=== PATIENT | male | born 1975 | race Caucasian/White ===

== ENCOUNTER → 2018-07-12 09:32 | Outpatient (CLI) | payer BC, SELFPAY ==
[2018-07-12 13:01] LABS: ALB/GLOB Ratio 1.2 RATIO (0.9-2.4); AST(SGOT) 44 U/L (15-37); Alanine Aminotransfer ALT/SGPT 112 U/L (16-61); Albumin, Serum 3.7 g/dL (3.2-5.0); Alkaline Phosphatase 96 U/L (45-117); Anion Gap 7 (5-15); BUN 17 mg/dL (7-18); Calcium,Total 8.6 mg/dL (8.5-10.1); Chloride 107 mmol/L (98-107); Creatinine, Serum 1.06 mg/dL (0.70-1.30); EST Glomerular Filtration Rate 81 mL/min (>60); Est Glom Filt Rate - Afr Amer 97 mL/min (>60); Glucose 105 mg/dL (74-106); Potassium 4.1 mmol/L (3.5-5.1); Protein, Total 6.7 g/dL (6.4-8.2); Sodium Level 142 mmol/L (136-145)
== END ==
PROVIDERS: Family Provider Family Medicine; PCP Family Medicine; Visit Provider Family Medicine
DX: I10 Essential (primary) hypertension (principal)
CPT/HCPCS: 36415; 80053

== ENCOUNTER 2018-11-13 12:06 | Emergency (ER) | payer BC, SELFPAY ==
[2018-11-13 12:07] VITALS: BP 179/100; PULSE 106; RESP 16; TEMP 36.9; O2SAT 99; BMI 31.6
--- NOTE | 2018-11-13 12:20 | RAD_ITS ---
STUDY: X-RAY CHEST REASON FOR EXAM: Male, 43 years old. Chest pain TECHNIQUE: Single AP portable view of the chest. COMPARISON: None. FINDINGS: The lungs are clear and expanded. There is no demonstrated pleural abnormality. Normal size heart. Normal mediastinum and lisa. Normal visualized pulmonary arteries. Normal visualized aortic arch and descending thoracic aorta. Normal visualized thoracic spine. Normal visualized ribs, clavicles, and shoulders. There is no demonstrated abnormality of the visualized soft tissue structures of the upper abdomen. RAD/Chest 1 View (Portable) IMPRESSION: Normal x-ray examination of the chest. Electronically Signed: Jorge Luis Hernandez MD at 13:43 EST , Service support ,
--- NOTE | 2018-11-13 12:20 | EKG12_ITS ---
Test Reason : PALPS Blood Pressure : / mmHG Vent. Rate : 105 BPM Atrial Rate : 105 BPM P-R Int : 182 ms QRS Dur : 082 ms QT Int : 322 ms P-R-T Axes : 034 000 -05 degrees QTc Int : 425 ms Sinus tachycardia Inferior infarct , age undetermined Abnormal ECG Confirmed by HAN GONZÁLES, ISAAC ([id number]), managing editor TAWANA WATERS ([id number] on 11/26/2018 2:46:34 PM Referred By: JONATHAN/HOMER Confirmed By:ISAAC SHORT MD
[2018-11-13 12:53] LABS: Absolute Lymphocyte Count 1.72 X10^3/ul (0.83-4.51); Absolute Neutrophil Count 4.3 X10^3/uL (2.0-7.7); Basophil# 0.03 X10^3/uL; Basophil% 0.4 % (0-1); Eosinophil# 0.11 X10^3/uL; Eosinophils% 1.6 % (0-5); Hematocrit 50.8 % (40-54); Hemoglobin 17.7 g/dl (13.0-16.5); Lymphocyte # 1.72 X10^3/ul (4.0); Mean Corp Hgb Conc 34.8 g/gl (32-36); Mean Corpuscular Hgb 31.8 pg (27.0-32.0); Mean Corpuscular Volume 91.4 fL (80-94); Monocyte# 0.67 X10^3/uL; Monocyte% 9.7 % (0-10); Neutrophil # 4.34 X10^3/uL (2.7-7.7); POSITIVE COUNT NO; POSITIVE DIFFERENTIAL NO; POSITIVE MORPHOLOGY NO; Platelet Count 214 K/mm3 (150-450); RBC Distribution Width CV 13.1 % (11.6-14.6); RBC Distribution Width SD 43.1 fl (35.1-43.9); Red Blood Count 5.56 M/mm3 (4.6-6.2); White Blood Count 6.9 K/mm3 (4.4-11.0)
--- NOTE | 2018-11-13 13:04 | ED.DCSUM_ITS ---
- ER Visit Summary Date of Service: 11/13/18 Chief Complaint: [] Hollow sensation in chest burping a lot for 3 weeks History of Present Illness: The patient is a 43 M [] he of hypertension and no other past history, no history of VA DVT PE CAD CHF or any GI issues, he indicates for 3 weeks has had an intermittent sense that in the midsternal area there is a hollow sensation that develops there that caused him to burp a lot, this is not associate with food or drink, not associate activity, he has had no fever no cough no numbness weakness or paresthesias no shortness of breath when he gets the sensation in his mid chest he feels that he has to burp quite a bit and it goes away he has no history of acid reflux or GI Is having no symptoms now and wanted to be evaluate because it has been going on for about 3 weeks intermittently Physical Examination: [] 140/80 afebrile pulse ox 99% General, no distress resting comfortably HEENT is generally unremarkable The neck is supple no adenopathy Cardiovascular, regular rate and rhythm Lungs, clear bilateral Abdomen, soft nontender Extremities, no clubbing cyanosis or edema Neurologic, awake alert answering questions appropriately moving all 4 extremities Patient assures me none of the symptoms are related to exertion he has no history of CAD or other life-threatening conditions her risk factors, his hypertension is well controlled, his bowel bladder habits been normal, his EKG shows nothing acute Test Results: [] Emergency Department Course and Treatment: [] Any labs and chest x-ray are all generally unremarkable see those reports, explained the above to him I explained that the exact etiology of the above is unclear we discussed inpatient versus outpatient management and have explained to him he needs further testing he does not wish to be admitted he prefers outpatient management at this time I recommend he stay on a bland diet continue to consider using proton pump inhibitor medications and follow-up with his doctors for further management he agrees Treatment Plan: [] Disposition: [] Home stable Impression: [] Nonspecific sensation in chest, persistent burping etiology uncl ear This note was generated with [employer] dictation software. It may contain incorrect words, spelling, and punctuation that were not noted in review of the chart prior to signing ED Disposition - Plan for ED Patient: Chief Complaint: Palpitations Referrals: Ajith Schneider MD [Primary Care Provider] -
--- NOTE | 2018-11-13 13:04 | ED.DEP ---
ED Disposition - Plan for ED Patient: Chief Complaint: Palpitations Instructions: ED Palpitations, ED Chest Pain Atypical Unkn Cause Referrals: Ajith Schneider MD [Primary Care Provider] -
[2018-11-13 13:06] VITALS: BP 151/105; PULSE 87; RESP 19; O2SAT 97
[2018-11-13 13:13] LABS: Anion Gap 7 (5-15); BUN 10 mg/dL (7-18); BUN/Creat Ratio 10.4 RATIO (10-20); Calcium,Total 8.9 mg/dL (8.5-10.1); Chloride 108 mmol/L (98-107); Creatinine, Serum 0.96 mg/dL (0.70-1.30); EST Glomerular Filtration Rate 90 mL/min (>60); Est Glom Filt Rate - Afr Amer 109 mL/min (>60); Estimated Creatinine Clearance 91.81 ml/min; Glucose 101 mg/dL (74-106); Potassium 3.3 mmol/L (3.5-5.1); Sodium Level 143 mmol/L (136-145)
[2018-11-13 14:00] VITALS: BP 151/95; PULSE 91; RESP 19; O2SAT 97
[2018-11-13 14:29] VITALS: BP 151/95; PULSE 79; RESP 17; O2SAT 98
== END 2018-11-13 14:41 | disposition home or self-care (01) ==
LOC: ED 12:56
PROVIDERS: Emergency Provider Emergency Medicine; Family Provider Family Medicine; PCP Family Medicine
DX: R09.89 Other specified symptoms and signs involving the circulatory and respiratory systems (principal); R14.2 Eructation; I10 Essential (primary) hypertension; Z79.899 Other long term (current) drug therapy
CPT/HCPCS: 71045; 80048; 84484; 85025; 93005; 99284; A4216

== ENCOUNTER → 2018-11-24 14:25 | Outpatient (CLI) | payer BC, SELFPAY ==
[2018-11-13 12:07] VITALS: BMI 31.6
[2018-11-24 14:36] LABS: Basophil# 0.05 X10^3/uL; Basophil% 0.7 % (0-1); Eosinophil# 0.15 X10^3/uL; Eosinophils% 2.2 % (0-5); Hematocrit 49.4 % (40-54); Hemoglobin 17.5 g/dl (13.0-16.5); Lymphocyte % 30.4 % (19-41); Mean Corp Hgb Conc 35.4 g/gl (32-36); Mean Corpuscular Hgb 31.8 pg (27.0-32.0); Mean Corpuscular Volume 89.8 fL (80-94); Mean Platelet Vol. 10.8 fl (6.2-12.0); Monocyte# 0.56 X10^3/uL; Monocyte% 8.1 % (0-10); Neutrophil # 4.03 X10^3/uL (2.7-7.7); Neutrophil % 58.5 % (47-70); Platelet Count 218 K/mm3 (150-450); RBC Distribution Width CV 13.3 % (11.6-14.6); RBC Distribution Width SD 43.7 fl (35.1-43.9); White Blood Count 6.9 K/mm3 (4.4-11.0)
[2018-11-24 14:38] LABS: POSITIVE COUNT NO; POSITIVE DIFFERENTIAL NO; POSITIVE MORPHOLOGY NO
[2018-11-24 14:59] LABS: Anion Gap 10 (5-15); BUN 15 mg/dL (7-18); BUN/Creat Ratio 16.6 RATIO (10-20); Calcium,Total 8.5 mg/dL (8.5-10.1); Chloride 108 mmol/L (98-107); Cholesterol 167 mg/dL (200); EST Glomerular Filtration Rate 97 mL/min (>60); Est Glom Filt Rate - Afr Amer 117 mL/min (>60); Glucose 78 mg/dL (74-106); High Density Lipoprotein 48 mg/dL; Potassium 3.8 mmol/L (3.5-5.1); Sodium Level 145 mmol/L (136-145); Triglycerides 80 mg/dL; Very Low Density Lipoprotein 16 mg/dL (5-40)
--- OUTSIDE RECORDS SUMMARY | 2019-01-26 14:52 | XMS RPT_ITS ---
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 / Community D58.2(ICD-10) Hospital Repository PROCEDURES PROCEDURES No Procedure Records FoundRESULTS RESULTS 12 LEAD ELECTROCARDIOGRAM Observed: 11/29/2018 Status: F Source: URIEL 5:45 PM FOR[facility]LY [facility] H[facility]PITAL REPOSITORY [facility] Cardiovascular Services [address] [place] [address] 12 Lead EKG 11/13/18 1208 MR#: [id number] Acct: [id number] Name: TREVOR BOYER Rep #: [id number] : 1975 43 From: Ajith Short MD Attending Dr: Status: DEP ER Ordering Dr: Mei Valverde MD Date: 11/13/18 Location: ED Sex: M C Admitted: Test Reason : PALPS Blood Pressure : / mmHG Vent. Rate : 105 BPM Atrial Rate : 105 BPM P-R Int : 182 ms QRS Dur : 082 ms QT Int : 322 ms P-R-T Axes : 034 000 -05 degrees QTc Int : 425 ms Sinus tachycardia Inferior infarct , age undetermined Abnormal ECG Confirmed by HAN GONZÁLES, AJITH ([id number]), news copy editor TAWANA WATERS ([id number]) on 11/26/2018 2:46:34 PM Referred By: SHAUNA Confirmed By:AJITH SHORT MD 11/26/18 1446 Date Ajith Short MD CC: MD Conor Valverde; Ajith Schneider MD Signed CBC W/DIFF, AUTOMATED Collected: 11/24/2018 Status: F Source: URIEL 12:30 PM [facility] REPOSITORY TYPE CODE TESTS RESULT OUT OF RANGE REFERENCE UNITS LAB L100.1000 4.4-11.0 K/mm3 Normal WBC 6.9 LAB L100.1200 4.6-6.2 M/mm3 Normal RBC 5.50 LAB L100.1300 13.0-16.5 g/dl High HGB 17.5 LAB L100.1400 40-54 % Normal HCT 49.4 LAB L100.1500 80-94 fL Normal MCV 89.8 LAB L100.1600 27.0-32.0 pg Normal MCH 31.8 LAB L100.1700 32-36 g/gl Normal MCHC 35.4 LAB L100.1810 11.6-14.6 % Normal RDW CV 13.3 LAB L100.1820 35.1-43.9 fl Normal RDW SD 43.7 LAB L100.1900 150-450 K/mm3 Normal PLT 218 LAB L100.2000 6.2-12.0 fl Normal MPV 10.8 LAB L100.2100 47-70 % Normal NEUT% 58.5 LAB L100.2200 19-41 % Normal LY% 30.4 LAB L100.2300 0-10 % Normal MONO% 8.1 LAB L100.2400 0-5 % Normal EO% 2.2 LAB L100.2500 0-1 % Normal BASO% 0.7 LAB L100.2550 0.0-0.9 % Normal IM GRAN % 0.100 Result Comment: IG% - Immature Granulocytes (promyelocytes, myelocytes and metamyelocytes) > 1% indicates that a LEFT SHIFT is Present. LAB L100.2620 2.0-7.7 X10 3/uL Normal Absolute Neut 4.0 LAB L100.2720 0.83-4.51 X10 3/ul Normal Absolute Lymph 2.10 Performed By: #### L100.0100 #### [facility] [address] [place], [place], [address] BASIC METABOLIC Collected: 11/24/2018 Status: F Source: FOLSOM PROFILE (BMP) 12:30 PM [facility] REPOSITORY TYPE CODE TESTS RESULT OUT OF RANGE REFERENCE UNITS LAB L501.0100 74-106 mg/dL Normal GLU 78 Result Comment: Please note revised GLUCOSE reference range effective 2017. LAB L501.1000 7-18 mg/dL Normal BUN 15 LAB L501.1100 0.70-1.30 mg/dL Normal CREAT,SERUM 0.90 Result Comment: The validity of the calculated GFR AND GFRAA in patients over 70 years has not been determined. Clinical correlation is essential. LAB L501.1110 >60 mL/min Normal EST GFR 97 Result Comment: Non- GFR Calc LAB L501.1115 >60 mL/min Normal EST GFR - AA 117 Result Comment: GFR Calc LAB L501.1300 10-20 RATIO Normal BUN/CRE 16.6 LAB L501.2200 8.5-10.1 mg/dL CA Normal 8.5 LAB L501.5300 136-145 mmol/L NA Normal 145 LAB L501.5600 3.5-5.1 mmol/L K Normal 3.8 LAB L501.5900 98-107 mmol/L High CL 108 LAB L501.6100 21.0-32.0 mmol/L Normal CO2 27.0 LAB L501.6200 5-15 Normal GAP 10 Performed By: #### L500.2500, L500.4100 #### [facility] [address] [place], [address] LIPID PROFILE Collected: 11/24/2018 Status: F Source: FOLSOM 12:30 PM [facility] REPOSITORY TYPE CODE TESTS RESULT OUT OF RANGE REFERENCE UNITS LAB L501.4900 200 mg/dL Normal CHOL 167 Result Comment: <200 mg/dL Desirable 200-240 mg/dL Borderline >240 mg/dL High Risk LAB L501.5000 mg/dL Normal TRIG 80 Result Comment: The drugs N-Acetylcysteine and Metamizole may falsely depress this assay. Serum Triglycerides Reference Interval Normal <150 mg/dL Borderline high 150 - 199 mg/dL High 200 - 499 mg/dL Very High > or = 500 mg/dL LAB L501.6400 mg/dL Normal HDL 48 Result Comment: The drugs N-Acetylcysteine and Metamizole may falsely depress this assay. Reference Range HDL <40 mg/dL Low HDL Cholesterol HDL >or= 60 mg/dL High HDL Cholesterol LAB L501.6500 0-130 mg/dL Normal LDL 103 LAB L501.6600 5-40 mg/dL Normal VLDL 16 Performed By: #### L500.2500, L500.4100 #### [facility] [address] [place], [address] EMERGENCY DEPARTMENT Observed: 11/13/2018 Status: F Source: FOLSOM SUMMARY 3:32 PM [facility] REPOSITORY [facility] Medical Records Department [address] [place] [address] Emergency Department Summary 11/13/18 1301 MR#: [id number] Acct: [id number] Name: TREVOR BOYER Rep #: [id number] : 1975 43 From: Mei Valverde MD PCP: Ajith Schneider MD Status: DEP ER - ER Visit Summary Date of Service: 11/13/18 Chief Complaint: [] Hollow sensation in chest burping a lot for 3 weeks History of Present Illness: The patient is a 43 M [] he of hypertension and no other past history, no history of LA DVT PE CAD CHF or any GI issues, he indicates for 3 weeks has had an intermittent sense that in the midsternal area there is a hollow sensation that develops there that caused him to burp a lot, this is not associate with food or drink, not associate activity, he has had no fever no cough no numbness weakness or paresthesias no shortness of breath when he gets the sensation in his mid chest he feels that he has to burp quite a bit and it goes away he has no history of acid reflux or GI Is having no symptoms now and wanted to be evaluate because it has been going on for about 3 weeks intermittently Physical Examination: [] 140/80 afebrile pulse ox 99% General, no distress resting comfortably HEENT is generally unremarkable The neck is supple no adenopathy Cardiovascular, regular rate and rhythm Lungs, clear bilateral Abdomen, soft nontender Extremities, no clubbing cyanosis or edema Neurologic, awake alert answering questions appropriately moving all 4 extremities Patient assures me none of the symptoms are related to exertion he has no history of CAD or other life-threatening conditions her risk factors, his hypertension is well controlled, his bowel bladder habits been normal, his EKG shows nothing acute Test Results: [] Emergency Department Course and Treatment: [] Any labs and chest x-ray are all generally unremarkable see those reports, explained the above to him I explained that the exact etiology of the above is unclear we discussed inpatient versus outpatient management and have explained to him he needs further testing he does not wish to be admitted he prefers outpatient management at this time I recommend he stay on a bland diet continue to consider using proton pump inhibitor medications and follow-up with his doctors for further management he agrees Treatment Plan: [] Disposition: [] Home stable Impression: [] Nonspecific sensation in chest, persistent burping etiology unclear This note was generated with [employer] dictation software. It may contain incorrect words, spelling, and punctuation that were not noted in review of the chart prior to signing ED Disposition - Plan for ED Patient: Chief Complaint: Palpitations Referrals: Ajith Schneider MD [Primary Care Provider] - What to do if you have Problems For any increased pain, shortness of breath, bleeding, nausea or vomiting, chest pain, or any unexpected problems, contact your Primary Care Provider. Call [facility] ([phone]) or report to the closest Emergency Room. Call 911 if necessary. 11/13/18 8514 <Electronically signed by Mei Valverde MD> Date Mei Valverde MD Cosigner Signature (If Indicated): Date CC: Ajith Schneider MD DISCHARGE INSTRUCTION Observed: 11/13/2018 Status: F Source: URIEL 1:05 PM [facility] HOSPITAL REPOSITORY [facility] Medical Records Department [address] [place] [address] Discharge Instruction 11/13/18 1304 MR#: [id number] Acct: [id number] Name: TREVOR BOYER Rep #: [id number] : 1975 43 From: Mei Valverde MD PCP: Ajith Schneider MD Status: REG ER ED Disposition - Plan for ED Patient: Chief Complaint: Palpitations Instructions: ED Palpitations, ED Chest Pain Atypical Unkn Cause Referrals: Ajith Schneider MD [Primary Care Provider] - What to do if you have Problems For any increased pain, shortness of breath, bleeding, nausea or vomiting, chest pain, or any unexpected problems, contact your Primary Care Provider. Call [facility] ([phone]) or report to the closest Emergency Room. Call 911 if necessary. 11/13/18 1305 <Electronically signed by Mei Valverde MD> Date Mei Valverde MD Cosigner Signature (If Indicated): Date CC: Ajith Schneider MD CBC W/DIFF, AUTOMATED Collected: 11/13/2018 Status: F Source: URIEL 12:30 PM [facility] TYPE CODE TESTS RESULT OUT OF RANGE REFERENCE UNITS LAB L100.1000 4.4-11.0 K/mm3 Normal WBC 6.9 LAB L100.1200 4.6-6.2 M/mm3 Normal RBC 5.56 LAB L100.1300 13.0-16.5 g/dl High HGB 17.7 LAB L100.1400 40-54 % Normal HCT 50.8 LAB L100.1500 80-94 fL Normal MCV 91.4 LAB L100.1600 27.0-32.0 pg Normal MCH 31.8 LAB L100.1700 32-36 g/gl Normal MCHC 34.8 LAB L100.1810 11.6-14.6 % Normal RDW CV 13.1 LAB L100.1820 35.1-43.9 fl Normal RDW SD 43.1 LAB L100.1900 150-450 K/mm3 Normal PLT 214 LAB L100.2000 6.2-12.0 fl Normal MPV 10.0 LAB L100.2100 47-70 % Normal NEUT% 63.0 LAB L100.2200 19-41 % Normal LY% 25.0 LAB L100.2300 0-10 % Normal MONO% 9.7 LAB L100.2400 0-5 % Normal EO% 1.6 LAB L100.2500 0-1 % Normal BASO% 0.4 LAB L100.2550 0.0-0.9 % Normal IM GRAN % 0.300 Result Comment: IG% - Immature Granulocytes (promyelocytes, myelocytes and metamyelocytes) > 1% indicates that a LEFT SHIFT is Present. LAB L100.2620 2.0-7.7 X10 3/uL Normal Absolute Neut 4.3 LAB L100.2720 0.83-4.51 X10 3/ul Normal Absolute Lymph 1.72 Performed By: #### L100.0100 #### [facility] [address] [place], [place], [address] BASIC METABOLIC Collected: 11/13/2018 Status: F Source: URIEL PROFILE (BMP) 12:30 PM [facility] REPOSITORY TYPE CODE TESTS RESULT OUT OF RANGE REFERENCE UNITS LAB L501.0100 74-106 mg/dL Normal GLU 101 Result Comment: Fasting Glucose result from 100 to 125 mg/dL suggests IMPAIRED HOMEOSTASIS per A.D.A. criteria. Please note revised GLUCOSE reference range effective 2017. LAB L501.1000 7-18 mg/dL Normal BUN 10 LAB L501.1100 0.70-1.30 mg/dL Normal CREAT,SERUM 0.96 Result Comment: The validity of the calculated GFR AND GFRAA in patients over 70 years has not been determined. Clinical correlation is essential. LAB L501.1110 >60 mL/min Normal EST GFR 90 Result Comment: Non- GFR Calc LAB L501.1115 >60 mL/min Normal EST GFR - AA 109 Result Comment: GFR Calc LAB L501.1255 ml/min Normal Estimated CRCL 91.81 LAB L501.1300 10-20 RATIO Normal BUN/CRE 10.4 LAB L501.2200 8.5-10 mg/dL Normal .1 CA 8.9 LAB L501.5300 136-14 mmol/L Normal 5 NA 143 LAB L501.5600 3.5-5. mmol/L Low 1 K 3.3 LAB L501.5900 98-107 mmol/L High CL 108 LAB L501.6100 21.0-3 mmol/L Normal 2.0 CO2 28.0 LAB L501.6200 5-15 Normal GAP 7 Performed By: #### L500.2500, L501.4010 #### [facility] [address] [place], [address] TROPONIN-I Collected: 11/13/2018 Status: F Source: FOLSOM 12:30 PM [facility] REPOSITORY TYPE CODE TESTS RESULT OUT OF RANGE REFERENCE UNITS LAB L501.4010 <0.045 ng/mL Normal < 0.015 TROPONIN-I Result Comment: TROPONIN-I EXPECTED VALUES <0.045 Negative 0.045 - 0.590 Consistent with Cardiac Damage > OR = 0.600 Critical Value Not every elevated troponin is indicative of LA. These values should be used with clinical judgement in examining the patient's clinical picture for diagnosis. To establish a diagnosis of LA versus myocardial injury, there must be a demonstrated rise and/or fall in the troponin values, in addition to ischemic symptoms, EKG changes, new regional wall motion abnormality, and/or angiographical evidence. PLEASE NOTE: REFERENCE RANGES EDITED 18 Performed By: #### L500.2500, L501.4010 #### [facility] [address] [place], [address] CHEST 1 VIEW Observed: 11/13/2018 Status: F Source: URIEL (PORTABLE) 12:21 PM [facility] HOSPITAL REPOSITORY [facility] Imaging Services [address] [place] [address] Chest 1 View (Portable) MR#: [id number] Acct: [id number] Name: TREVOR BOYER Rep #: [id number] : 1975 M 43 From: Jorge Luis Hernandez MD PCP: Ajith Schneider MD Status: REG ER Study: Chest 1 View (Portable) Date of Exam: 11/13/18 Exam# [id number] Ordering Dr: Mei Valverde MD STUDY: X-RAY CHEST REASON FOR EXAM: Male, 43 years old. Chest pain TECHNIQUE: Single AP portable view of the chest. COMPARISON: None. FINDINGS: The lungs are clear and expanded. There is no demonstrated pleural abnormality. Normal size heart. Normal mediastinum and lisa. Normal visualized pulmonary arteries. Normal visualized aortic arch and descending thoracic aorta. Normal visualized thoracic spine. Normal visualized ribs, clavicles, and shoulders. There is no demonstrated abnormality of the visualized soft tissue structures of the upper abdomen. RAD/Chest 1 View (Portable) IMPRESSION: Normal x-ray examination of the chest. Electronically Signed: Jorge Luis Hernandez MD at 13:43 EST , Service support , CC: MD Conor Valverde; Ajith Schneider MD Cloth Winding Supervisor: Signed COMPREHENSIVE METABOLIC Collected: 07/12/2018 Status: F Source: URIEL PROFIL 9:34 AM [facility] REPOSITORY TYPE CODE TESTS RESULT OUT OF RANGE REFERENCE UNITS LAB L501.0100 74-106 mg/dL Normal GLU 105 Result Comment: Fasting Glucose result from 100 to 125 mg/dL suggests IMPAIRED HOMEOSTASIS per A.D.A. criteria. Please note revised GLUCOSE reference range effective 2017. LAB L501.1000 7-18 mg/dL Normal BUN 17 LAB L501.1100 0.70-1.30 mg/dL Normal CREAT,SERUM 1.06 Result Comment: The validity of the calculated GFR AND GFRAA in patients over 70 years has not been determined. Clinical correlation is essential. LAB L501.1110 >60 mL/min Normal EST GFR 81 Result Comment: Non- GFR Calc LAB L501.1115 >60 mL/min Normal EST GFR - AA 97 Result Comment: GFR Calc LAB L501.1300 10-20 RATIO Normal BUN/CRE 16.0 LAB L501.1500 6.4-8.2 g/dL T Normal PROT 6.7 LAB L501.1800 3.2-5.0 g/dL Normal ALB 3.7 LAB L501.1950 2.2-4.2 g/dL Normal GLOB 3.0 LAB L501.2000 0.9-2.4 RATIO Normal A/G 1.2 LAB L501.2200 8.5-10.1 mg/dL CA Normal 8.6 LAB L501.4100 15-37 U/L High AST 44 LAB L501.4305 45-117 U/L Normal ALK P 96 LAB L501.4405 16-61 U/L High ALT 112 LAB L501.4600 0.20-1.00 mg/dL T Normal BILI 0.80 LAB L501.5300 136-145 mmol/L NA Normal 142 LAB L501.5600 3.5-5.1 mmol/L K Normal 4.1 LAB L501.5900 98-107 mmol/L CL Normal 107 LAB L501.6100 21.0-32.0 mmol/L Normal CO2 28.0 LAB L501.6200 5-15 Normal GAP 7 Performed By: #### L500.4050 #### [facility] [address] [place], [address] PROGRESS Observed: 02/22/2018 Status: COMPLETED Source: VELAZQUEZ 8:43 PM [facility] REPOSITORY HNO ID: [id number] Author: Rhianna Slaughter (Pa) Service: (none) Author Type: Physician Teaching Young Type: Progress Notes Filed: 02/22/2018 8:48 PM Note Text: Subjective HPI Trevor Boyer is a 43 year old male who presents with a 23 cm superficial scrape on the left forearm from a metal fence. He is unsure when his last Td was. He denies any significant pain, numbness in the arm. No past medical history on file. No past surgical history on file. ALLERGIES Penicillins MEDICATIONS lisinopril (ZESTRIL, PRINIVIL) 10 mg tablet Take 10 mg by mouth once daily. ciprofloxacin (CIPRO) 500 mg tablet Take 500 mg by mouth twice daily. oxyCODONE-acetaminophen (PERCOCET) 7.5-325 mg tablet Take 1 tablet by mouth every 4 hours as needed. No family history on file. Social History Substance Use Topics - Smoking status: Never Smoker - Smokeless tobacco: Never Used - Alcohol use Not on file Review of Systems Skin: Mildly painful superficial abrasion Objective Physical Exam Constitutional: He is well-developed, well-nourished, and in no distress. Skin: 23 cm superficial scrape of the anterior forearm. No swelling or drainage is present. Full motion of the hand and fingers. Sensation is intact. Blood pressure 136/84, pulse 82, temperature 36.3 ?C (97.4 ?F), temperature source Tympanic, resp. rate 16, weight 91.6 kg (202 lb). ASSESSMENT/PLAN: 1. Open wound of left upper arm, initial encounter - ICD9: 880.03, ICD10: S41.102A Tolerated the vaccine well. No adverse reactions occurred. Keep wound clean and dry. - TDAP VACCINE AGE 7+ IM Rhianna Slaughter PA-C CNOV Observed: 02/22/2018 Status: COMPLETED Source: [place]RO[place] 8:30 PM [facility] REPOSITORY [facility] TREVOR BOYER ([id number]) 1975 M Date Time Provider Department 02/22/18 8:30 PM RHIANNA SLAUGHTER) [facility] During your visit today, we recorded the following information about you: Temperature Pulse Respiration Blood pressure 97.4 degrees 82/minute 16/minute 136/84 Weight 91.6 kg Rhianna Slaughter PA-C 02/22/2018 8:48 PM Signed Subjective HPI Trevor Boyer is a 43 year old male who presents with a 23 cm superficial scrape on the left forearm from a metal fence. He is unsure when his last Td was. He denies any significant pain, numbness in the arm. No past medical history on file. No past surgical history on file. ALLERGIES Penicillins MEDICATIONS lisinopril (ZESTRIL, PRINIVIL) 10 mg tablet Take 10 mg by mouth once daily. ciprofloxacin (CIPRO) 500 mg tablet Take 500 mg by mouth twice daily. oxyCODONE-acetaminophen (PERCOCET) 7.5-325 mg tablet Take 1 tablet by mouth every 4 hours as needed. No family history on file. Social History Substance Use Topics - Smoking status: Never Smoker - Smokeless tobacco: Never Used - Alcohol use Not on file Review of Systems Skin: Mildly painful superficial abrasion Objective Physical Exam Constitutional: He is well-developed, well-nourished, and in no distress. Skin: 23 cm superficial scrape of the anterior forearm. No swelling or drainage is present. Full motion of the hand and fingers. Sensation is intact. Blood pressure 136/84, pulse 82, temperature 36.3 ?C (97.4 ?F), temperature source Tympanic, resp. rate 16, weight 91.6 kg (202 lb). ASSESSMENT/PLAN: 1. Open wound of left upper arm, initial encounter - ICD9: 880.03, ICD10: S41.102A Tolerated the vaccine well. No adverse reactions occurred. Keep wound clean and dry. - TDAP VACCINE AGE 7+ IM Rhianna Slaughter PA-C Referring Provider: SELF [200] Allergies As of Date: 02/22/2018 Noted Allergy Reaction PENICILLINS 07/31/2014 7 - Swelling Date Reviewed: 02/22/2018 Reviewed by: Barrie Terry Ma - Fully Assessed Reason for Visit: Laceration [1747] Cmt: on left forearm scrape on jerrell fence x today, needs tetanus Reason For Visit History Recorded Primary Visit Diagnosis:Open wound of left upper arm, initial encounter [S41.102A] Order(s):TDAP VACCINE AGE 7+ IM [[id number]] Order #: [id number] Prescriptions as of 02/22/2018 Sig: LISINOPRIL 10 MG TABLET Take 10 mg by mouth once cristina* CIPROFLOXACIN 500 MG TABLET Take 500 mg by mouth twice da* OXYCODONE-ACETAMINOPHEN 7.5 M* Take 1 tablet by mouth every * Medication notes this encounter CIPROFLOXACIN 500 MG TABLET >> Barrie Terry Ma 02/22/2018 8:32 PM >> BARRIE TERRY MA [facility] Feb 22, 2018 8:32 PM done OXYCODONE-ACETAMINOPHEN 7.5 MG-325 MG TABLET >> Barrie Terry Ma 02/22/2018 8:32 PM >> BARRIE TERRY MA [facility] Feb 22, 2018 8:32 PM done Problem List As Of Date 02/22/2018 Noted Resolved Kidney stone [N20.0] INVALID FOR* Left flank pain [R10.9] INVALID FOR* Encounter Status:Closed by TY THOMAS, RHIANNA on 02/22/18 ALLERGIES ALLERGIES DATE TYPE / CODE NAME / CODE REACTION SEVERITY SOURCE 11/13/2018 Drug Penicillins/F0010 Angioedema Unknown [facility] Allergy/416 99551(RXNORM) [facility] [id number]([facility] ED CT) Repository 07/31/2014 Drug PENICILLINS SWELLING [facility] Class/80438 [address] [place] 1003(SNOMED Repository CT) ENCOUNTERS ENCOUNTERS ADMIT/DISCHARGE ACCOUNT ADMITTING ENCOUNTER LOCATION SOURCE NUMBER CLASS 11/24/2018 [id number] Ambulatory [facility] ing:MFPLAB Repository 11/13/2018/11/13/19 [id number] Emergency [address] ing:ED Repository 07/12/2018 [id number] Ambulatory [facility] ing:MFPLAB Repository 02/22/2018/02/24/20 [id number] Ambulatory [address] Repository PAYERS PAYERS ENCOUNTER GUARANTOR PAYER SUBSCRIBER SOURCE 11/24/2018 TREVOR [place] [id number] Insurance:ANTHEMPolic PORTERDOB: Community COLEMAN y Number: [id number] [place], [place] [id number] Repository [address]Tdd: (330) Date:[id number] [phone] () [address], [place] [address]SY: 11/24/2018 Secondary NOT GIVENUNK [facility] Insurance:SELF PAY [facility] Number: Effective Repository Date:2018-11-24 11/13/2018 TREVOR P Primary TREVOR P [place] [id number] Insurance:ANTHEMPolic PORTERDOB: Community COLEMAN [place]: [id number] [id number] Repository [address]Tkv: (330) Date:[id number] [phone] () [place], [place] [address]OZ: 11/13/2018 Secondary NOT GIVENUNK [place] Insurance:SELF PAY [facility] Number: Effective Repository Date:2018-11-13 07/12/2018 Trevor [id number] Primary TREVOR PORTERDOB: [place] Insurance:ANTHEMPolic [id number] y Number: Hospital [address]Jdl: (330) [id number] Repository [phone] () Date:[id number], [place] [address]DB: 07/12/2018 Secondary NOT GIVENUNK [place] Insurance:SELF PAY [facility] Number: Effective Repository Date:2018-07-12
== END ==
PROVIDERS: Family Provider Family Medicine; PCP Family Medicine; Visit Provider Family Medicine
DX: I10 Essential (primary) hypertension (principal); D58.2 Other hemoglobinopathies
CPT/HCPCS: 36415; 80048; 80061; 85025

== ENCOUNTER → 2019-09-14 08:51 | Outpatient (CLI) | payer BC, SELFPAY ==
[2019-09-14 10:53] LABS: Anion Gap 7 (5-15); BUN 18 mg/dL (7-18); BUN/Creat Ratio 17.1 RATIO (10-20); Calcium,Total 8.4 mg/dL (8.5-10.1); Chloride 107 mmol/L (98-107); Cholesterol 151 mg/dL (200); Creatinine, Serum 1.05 mg/dL (0.70-1.30); EST Glomerular Filtration Rate 81 mL/min (>60); Est Glom Filt Rate - Afr Amer 98 mL/min (>60); Glucose 106 mg/dL (74-106); High Density Lipoprotein 43 mg/dL; Potassium 3.8 mmol/L (3.5-5.1); Sodium Level 141 mmol/L (136-145); Triglycerides 97 mg/dL; Very Low Density Lipoprotein 19 mg/dL (5-40)
== END ==
PROVIDERS: Family Provider Family Medicine; PCP Family Medicine; Referring Provider Family Medicine; Visit Provider Family Medicine
DX: I10 Essential (primary) hypertension (principal)
CPT/HCPCS: 36415; 80048; 80061

== ENCOUNTER → 2020-08-01 08:45 | Outpatient (CLI) | payer BC, SELFPAY ==
[2020-08-01 10:29] LABS: Anion Gap 4 (5-15); BUN 17 mg/dL (7-18); BUN/Creat Ratio 18.2 RATIO (10-20); Calcium,Total 8.7 mg/dL (8.5-10.1); Chloride 107 mmol/L (98-107); Cholesterol 139 mg/dL (200); Creatinine, Serum 0.94 mg/dL (0.70-1.30); EST Glomerular Filtration Rate 92 mL/min (>60); Est Glom Filt Rate - Afr Amer 111 mL/min (>60); Glucose 95 mg/dL (74-106); High Density Lipoprotein 45 mg/dL; Potassium 3.5 mmol/L (3.5-5.1); Sodium Level 140 mmol/L (136-145); Triglycerides 74 mg/dL; Very Low Density Lipoprotein 15 mg/dL (5-40)
[2020-08-01 10:51] LABS: Hemoglobin A1c 5.1 % (3.8-5.6)
== END ==
PROVIDERS: PCP Family Medicine; Referring Provider Family Medicine; Visit Provider Family Medicine
DX: Z00.00 Encounter for general adult medical examination without abnormal findings (principal)
CPT/HCPCS: 36415; 80048; 80061; 83036

== ENCOUNTER → 2021-03-25 09:43 | Outpatient (CLI) | payer BC, SELFPAY ==
[2021-03-25 12:41] LABS: Absolute Lymphocyte Count 1.38 X10^3/uL (0.83-4.51); Absolute Neutrophil Count 2.7 X10^3/uL (2.0-7.7); Basophil# 0.04 X10^3/uL; Basophil% 0.9 % (0-1); Eosinophil# 0.08 X10^3/uL; Eosinophils% 1.8 % (0-5); Hematocrit 48.3 % (40-54); Hemoglobin 16.5 g/dL (13.0-16.5); Lymphocyte # 1.38 X10^3/ul (0.83-4.51); Lymphocyte % 30.2 % (19-41); Mean Corp Hgb Conc 34.2 g/dL (32-36); Mean Corpuscular Hgb 30.6 pg (27.0-32.0); Mean Corpuscular Volume 89.6 fL (80-94); Mean Platelet Vol. 10.3 fl (6.2-12.0); Monocyte# 0.39 X10^3/uL; Monocyte% 8.5 % (0-10); NRBC Flagged by Analyzer 0 % (0-5); Neutrophil # 2.67 X10^3/uL (2.7-7.7); Neutrophil % 58.4 % (47-70); Platelet Count 227 K/mm3 (150-450); RBC Distribution Width CV 12.7 % (11.6-14.6); RBC Distribution Width SD 41.7 fl (35.1-43.9); Red Blood Count 5.39 M/mm3 (4.6-6.2); White Blood Count 4.6 K/mm3 (4.4-11.0)
[2021-03-25 13:03] LABS: Anion Gap 3 (5-15); BUN 18 mg/dL (7-18); BUN/Creat Ratio 18.6 RATIO (10-20); Calcium,Total 8.7 mg/dL (8.5-10.1); Chloride 107 mmol/L (98-107); Creatinine, Serum 0.97 mg/dL (0.70-1.30); EST Glomerular Filtration Rate 88 mL/min (>60); Est Glom Filt Rate - Afr Amer 107 mL/min (>60); Glucose 104 mg/dL (74-106); Potassium 3.6 mmol/L (3.5-5.1); Sodium Level 140 mmol/L (136-145)
== END ==
PROVIDERS: PCP Family Medicine; Visit Provider Family Medicine
DX: I10 Essential (primary) hypertension (principal); D58.2 Other hemoglobinopathies
CPT/HCPCS: 36415; 80048; 85025

== ENCOUNTER → 2021-08-23 | Outpatient (CLI) | payer BC, SELFPAY | END | disposition home or self-care (01) | LOC: LABSPEC 17:41 | PROVIDERS: PCP Family Medicine; Visit Provider Family Medicine | DX: U07.1 COVID-19 (principal) | CPT/HCPCS: 87635; U0005; U0003 ==

== ENCOUNTER → 2021-08-24 | Outpatient (CLI) | payer BC, SELFPAY | END | disposition home or self-care (01) | PROVIDERS: PCP Family Medicine; Referring Provider Family Medicine; Visit Provider Family Medicine | DX: Z20.822 Contact with and (suspected) exposure to COVID-19 (principal) ==

== ENCOUNTER → 2022-05-07 | Outpatient (CLI) | payer BC, SELFPAY ==
[2022-05-07 10:48] LABS: Anion Gap 4 (5-15); BUN 15 mg/dL (7-18); Calcium,Total 8.7 mg/dL (8.5-10.1); Chloride 107 mmol/L (98-107); Cholesterol 112 mg/dL (200); Creatinine, Serum 1.07 mg/dL (0.70-1.30); EST Glomerular Filtration Rate 78 mL/min (>60); Est Glom Filt Rate - Afr Amer 95 mL/min (>60); Glucose 109 mg/dL (74-106); High Density Lipoprotein 41 mg/dL; Potassium 3.7 mmol/L (3.5-5.1); Sodium Level 140 mmol/L (136-145); Triglycerides 91 mg/dL; Very Low Density Lipoprotein 18 mg/dL (5-40)
== END | disposition home or self-care (01) ==
PROVIDERS: PCP Family Medicine; Visit Provider Family Medicine
DX: E78.5 Hyperlipidemia, unspecified (principal)
CPT/HCPCS: 36415; 80048; 80061

== ENCOUNTER 2022-06-08 08:38 | Emergency (ER) | payer BC, SELFPAY ==
[2022-06-08 08:39] VITALS: BP 132/117; PULSE 72; RESP 16; TEMP 36.2; O2SAT 100; BMI 27.8
--- NOTE | 2022-06-08 09:04 | CT_ITS ---
EXAM: CT ABDOMEN AND PELVIS WITHOUT INTRAVENOUS CONTRAST CLINICAL INDICATION: flank pain TECHNIQUE: Helically acquired images were obtained of the abdomen and pelvis without intravenous contrast. This CT exam was performed using one or more of the following dose reduction techniques: automated exposure control, adjustment of the mA and/or kV according to patient size, and/or use of iterative reconstruction technique. This report was created using [employer] report generation technology. COMPARISON: None. FINDINGS: LOWER THORAX: Normal. Lung bases are clear. No cardiomegaly. No pericardial effusion. ABDOMEN: LIVER: Normal. Homogeneous. GALLBLADDER AND BILE DUCTS: Normal. No calcified gallstones. No gallbladder distention or wall edema. No intra- or extrahepatic biliary ductal dilation. PANCREAS: Normal. No focal cystic mass. SPLEEN: Normal. Normal size without focal cystic or solid mass. ADRENALS: Normal. No nodules. KIDNEYS AND URETERS: 6 mm proximal right ureteral stone noted at the L2-3 level associated with mild right hydronephrosis and perinephric edema. No intrarenal stone. 5 mm left renal cortical lesion which may represent complex cyst or solid mass. Normal renal size and position. STOMACH AND BOWEL: Normal. No bowel distention. No focal inflammatory change. PELVIS: APPENDIX: No evidence of acute appendicitis. BLADDER: Normal. REPRODUCTIVE: Unremarkable as visualized. No mass. ABDOMEN and PELVIS: INTRAPERITONEAL SPACE: Normal. No ascites or other fluid collection. No free air. BONES/JOINTS: Normal. No suspicious lytic or blastic abnormality. SOFT TISSUES: Normal. No discrete abdominal or pelvic wall hernia. VASCULATURE: Normal. Abdominal aorta is non-dilated. LYMPH NODES: Normal. No enlarged lymph nodes. CT/Abdomen/Pelvis without Cont IMPRESSION: 1. Obstructive 6 mm proximal right ureteral stone. 2. 5 mm indeterminate left renal lesion. ACR White Paper guidelines (Cristiana, et al. JACR 2018; 15(2):264-273) recommend abdominal MRI (preferred) or CT without and with intravenous contrast within 6-12 months. Electronically Signed: Tuan Feldman MD at 9:45 EDT ,
--- NOTE | 2022-06-08 09:06 | EDS_ITS ---
HPI History of Present Illness Chief Complaint: Flank Pain Narrative Narrative: Patient presents with right-sided flank pain, it got worse today he has had some intermittent pain over the past week to 2 weeks but today it started getting much worse he does have a history of kidney stones this feels similar. He has no fever chills or urinary symptoms. The pain does not radiate into his lower abdomen on the right. PFSH PFSH Home Medications albuterol sulfate 90 mcg/actuation aerosol inhaler (ProAir HFA) 2 puff IH Q4H PRN PRN Wheezing 11/13/18 [History Last Taken Unknown] lisinopril 10 mg tablet 10 mg PO DAILY 11/13/18 [History Last Taken Unknown] rosuvastatin 5 mg tablet 5 mg PO DAILY 11/13/18 [History Last Taken Unknown] oxycodone-acetaminophen 5 mg-325 mg tablet (Percocet) 1 tab PO Q6H PRN pain 3 days #12 tabs 06/08/22 [Rx Last Taken Unknown] Allergy/AdvReac Type Severity Reaction Status Date / Time Penicillins Allergy Angioedema Verified 06/08/22 08:41 Social History Smoking Status: Never smoker ROS ROS ED ROS Narrative Past medical history: Reviewed Medications: Reviewed Social history: Noncontributory Review of systems: All systems negative except as indicated General: No fever Eyes: No visual changes ENT: No upper airway congestion, normal voice Neck: No neck pain Cardiovascular: No chest pain Respiratory: No shortness of breath or cough Gastrointestinal: Abdominal and flank pain as in HPI Genitourinary: No dysuria Musculoskeletal: Denies myalgias no difficulty with ambulation Skin: No rash Neurological: No memory loss, confusion or any focal weakness Psych: No recent behavioral changes Hematologic: No easy bleeding or easy bruising EXAM Physical Exam Narrative Exam Narrative: Physical exam General: Patient appears uncomfortable Head: Normocephalic, Atraumatic Eyes: Conjunctiva not pale ENT: Moist mucous membranes Neck: Supple, Nontender, No lymphadenopathy Cardiovascular: Regular rate, Regular rhythm Respiratory: No distress, CTA bilaterally Abdomen: He has right-sided flank pain and some right-sided abdominal pain. No guarding or rebound. Back: Nontender, Normal Inspection. Negative for: CVA tenderness Extremities: Nontender, No edema Skin: Normal color, No rash Neurological: Alert, Normal Strength, Normal Sensation Psychological: Normal affect Const Vital Signs: 06/08/22 08:39 06/08/22 09:06 06/08/22 10:05 Temperature 97.1 F L Temperature Source Temporal Pulse Rate 72 Respiratory Rate 16 Respiratory Effort Normal Blood Pressure 132/117 H Blood Pressure Mean 122 Pulse Ox 100 98 Oxygen Delivery Method Room Air Room Air 06/08/22 10:07 Temperature Temperature Source Pulse Rate 78 Respiratory Rate 19 H Respiratory Effort Blood Pressure 140/78 H Blood Pressure Mean 98 Pulse Ox 99 Oxygen Delivery Method Room Air [facility] MDM Lab Data Labs: Laboratory Results - last 24 hr 06/08/22 06/08/22 06/08/22 08:55 09:02 09:02 WBC 8.8 RBC 5.78 Hgb 18.4 H* Hct 51.7 MCV 89.4 MCH 31.8 MCHC 35.6 RDW Std Deviation 41.4 RDW Coeff of Sadi 12.7 Plt Count 226 MPV 10.0 Immature Gran % (Auto) 0.300 Neut % (Auto) 80.3 H Lymph % (Auto) 13.3 L [place] % (Auto) 4.8 Eos % (Auto) 0.8 Baso % (Auto) 0.5 Absolute Neuts (auto) 7.1 Absolute Lymphs (auto) 1.17 Nucleated RBC % 0 Diff Path Review May foll Sodium 139 Potassium 3.7 Chloride 105 Carbon Dioxide 29.0 Anion Gap 5 BUN 18 Creatinine 1.28 Estim Creat Clear Calc 65.99 Est GFR (MDRD) Af Amer 77 Est GFR (MDRD) Non-Af 64 BUN/Creatinine Ratio 14.1 Glucose 148 H Calcium 9.4 Total Bilirubin 1.30 H AST 25 ALT 44 Alkaline Phosphatase 57 Total Protein 7.2 Albumin 4.2 Globulin 3.0 Albumin/Globulin Ratio 1.4 Urine Color Yellow Urine Clarity Sl. Cloudy Urine pH 8.0 Ur Specific Sixes 1.015 Urine Protein 15 H Urine Glucose (UA) Normal Urine Ketones 5 H Urine Occult Blood 250 H Urine Nitrite Negative Urine Bilirubin Negative Urine Urobilinogen Normal Ur Leukocyte Esterase Negative Urine RBC 10-25 SEEN Urine WBC 0 SEEN Ur Squamous Epith Cells 0 SEEN Amorphous Sediment 2+ Urine Bacteria 0 SEEN Urine Mucus 0 SEEN Radiography Diagnostic Testing: Clinical Impression(s) from Imaging Studies Abdomen/Pelvis CT 06/08/22 09:04 IMPRESSION: 1. Obstructive 6 mm proximal right ureteral stone. 2. 5 mm indeterminate left renal lesion. ACR White Paper guidelines (Herts, et al. JACR 2018; 15(2):264-273) recommend abdominal MRI (preferred) or CT without and with intravenous contrast within 6-12 months. Electronically Signed: Tuan Feldman MD at 9:45 EDT , Treatment and Re-Evaluation Narrative: I willPatient is found to have a 6 mm right ureteral stone. There is also an indeterminate renal lesion on the left which will need repeat scan, patient will be referred to urology for both. Discharged with analgesia he significantly improved. I did tell him he may need surgery, he still wants to be discharged and will call urology tomorrow. Discharge Plan Triage Chief Complaint: Flank Pain ED Provider: Ajith Baker Dx/Rx/DC Orders Clinical Impression: Kidney calculi, Renal cyst Prescriptions: New oxycodone-acetaminophen [Percocet] 5-325 mg tablet 1 tab PO Q6H PRN (Reason: pain) 3 Days Qty: 12 0RF No Action lisinopril 10 MG tablet 10 mg PO DAILY Label Comments: TAKE 1 TABLET BY MOUTH DAILY albuterol sulfate [ProAir HFA] 1 PUFF inhaler 2 puff IH Q4H PRN PRN (Reason: Wheezing) Label Comments: INHALE 2 PUFFS INTO LUNGS EVERY 4 HOURS NEEDED rosuvastatin 5 MG tablet 5 mg PO DAILY Label Comments: TAKE 1 TABLET BY MOUTH EVERYDAY AT BEDTIME Primary Care Provider: Ajith Schneider Referrals: Jake Lopez MD [Med Staff - Active Staff] - 2 Days Ajith Schneider MD [Primary Care Provider] - Activity Restrictions/Additional Instructions: You have a cyst on your left kidney, you will need to have a repeat CAT scan in 6 months to make sure this does not grow or has signs of cancer. Disposition Disposition: Home, Self Care
[2022-06-08] MEDS: Ketorolac 15 MG/ML Vial IV (09:08)
[2022-06-08] MEDS: Ondansetron 4 MG/2 ML Vial IV (09:08)
[2022-06-08] MEDS: Morphine 4 MG/ML Syringe IV (09:09)
[2022-06-08 09:10] LABS: Bacteria 0 SEEN /hpf (None Seen); Mucous, Urine 0 SEEN /hpf (<or=2+); Squamous Epithelial Cells - UA 0 SEEN /hpf (0-5); White Blood Cells 0 SEEN /hpf (0-5)
[2022-06-08 09:17] LABS: Absolute Lymphocyte Count 1.17 X10^3/uL (0.83-4.51); Absolute Neutrophil Count 7.1 X10^3/uL (2.0-7.7); Basophil# 0.04 X10^3/uL; Basophil% 0.5 % (0-1); Eosinophil# 0.07 X10^3/uL; Eosinophils% 0.8 % (0-5); Hematocrit 51.7 % (40-54); Lymphocyte # 1.17 X10^3/ul (0.83-4.51); Lymphocyte % 13.3 % (19-41); Mean Corp Hgb Conc 35.6 g/dL (32-36); Mean Corpuscular Hgb 31.8 pg (27.0-32.0); Mean Corpuscular Volume 89.4 fL (80-94); Monocyte# 0.42 X10^3/uL; Monocyte% 4.8 % (0-10); NRBC Flagged by Analyzer 0 % (0-5); Neutrophil # 7.07 X10^3/uL (2.7-7.7); Neutrophil % 80.3 % (47-70); Platelet Count 226 K/mm3 (150-450); RBC Distribution Width CV 12.7 % (11.6-14.6); RBC Distribution Width SD 41.4 fl (35.1-43.9); Red Blood Count 5.78 M/mm3 (4.6-6.2); White Blood Count 8.8 K/mm3 (4.4-11.0)
[2022-06-08 09:21] LABS: Color, Urine Yellow (Yellow); Glucose, Dipstick Normal (Normal); Ketone-Dipstick 5 mg/dl (Negative); Leukocyte Esterase-Dipstick Negative /ul (Negative); Nitrite-Dipstick Negative (Negative); Occult Blood-Urine 250 /ul (Negative); Protein-Dipstick 15 mg/dl (Negative); Specific Gravity, Urine 1.015 (1.002-1.030); Urine Bilirubin Dipstick Negative (Negative); Urine Clarity Sl. Cloudy (Clear); Urine Urobilinogen Normal (Normal)
[2022-06-08 09:28] LABS: ALB/GLOB Ratio 1.4 RATIO (0.9-2.4); AST(SGOT) 25 U/L (15-37); Alanine Aminotransfer ALT/SGPT 44 U/L (16-61); Albumin, Serum 4.2 g/dL (3.2-5.0); Alkaline Phosphatase 57 U/L (45-117); Anion Gap 5 (5-15); BUN 18 mg/dL (7-18); BUN/Creat Ratio 14.1 RATIO (10-20); Calcium,Total 9.4 mg/dL (8.5-10.1); Chloride 105 mmol/L (98-107); Creatinine, Serum 1.28 mg/dL (0.70-1.30); EST Glomerular Filtration Rate 64 mL/min (>60); Est Glom Filt Rate - Afr Amer 77 mL/min (>60); Estimated Creatinine Clearance 65.99 ml/min; Glucose 148 mg/dL (74-106); Potassium 3.7 mmol/L (3.5-5.1); Protein, Total 7.2 g/dL (6.4-8.2); Sodium Level 139 mmol/L (136-145)
[2022-06-08 09:31] LABS: Hemoglobin 18.4 g/dL (13.0-16.5)
[2022-06-08 09:37] LABS: Amorphous Sediment 2+; Red Blood Cells-Urine 10-25 SEEN /hpf (0-5)
[2022-06-08 10:05] VITALS: O2SAT 98
[2022-06-08 10:07] VITALS: BP 140/78; PULSE 78; RESP 19; O2SAT 99
[2022-06-08 10:55] VITALS: BP 128/88; PULSE 68; RESP 17; TEMP 36.8; O2SAT 99
[2022-06-09 12:25] LABS: Pathologist Review Reviewed
== END 2022-06-08 10:56 | disposition home or self-care (01) ==
PROVIDERS: Emergency Provider Emergency Medicine; PCP Family Medicine; Visit Provider Emergency Medicine
DX: N20.0 Calculus of kidney (principal); N28.1 Cyst of kidney, acquired; Z79.899 Other long term (current) drug therapy; Z87.442 Personal history of urinary calculi
CPT/HCPCS: 74176; 80053; 81001; 85025; 96374; 96375; 99283; J7030; A4216; J2405

== ENCOUNTER → 2022-07-01 | Outpatient (CLI) | payer BC, SELFPAY ==
--- NOTE | 2022-07-01 07:22 | CT_ITS ---
STUDY: CT ABDOMEN AND PELVIS WITH CONTRAST REASON FOR EXAM: Male, 47 years old. LEFT KIDNEY CA. New diagnosis. RADIATION DOSAGE (If Supplied By Facility): CTDIvol = ( 15.14 ) mGy, DLP = ( 1455.16 ) mGycm TECHNIQUE: Transaxial images were obtained from the dome of the diaphragm to the symphysis pubis without oral contrast. IV 100mL Isovue-300 was administered. Sagittal and coronal images were reconstructed. Individualized dose optimization techniques were used for this CT. COMPARISON: Comparison is made with prior study 06/08/2022. FINDINGS: The visualized lung bases are unremarkable. The visualized portions of the heart are within normal limits. There is decreased attenuation of the liver consistent with steatosis. Normal gallbladder and extrahepatic biliary system. Normal spleen. Normal pancreas. Normal bilateral adrenal glands. Normal right kidney. 5 mm cyst along the inferior medial aspect of the left kidney Normal visualized stomach. Normal small intestine. There are scattered colonic diverticula consistent with diverticulosis. The appendix is visualized and appears normal. There is scattered atherosclerotic calcification of the abdominal aorta, without a demonstrated aneurysm. Normal inferior vena cava. Normal retroperitoneum. Normal urinary bladder. There are prostatic calcifications. Normal abdominal wall. There are mild degenerative changes of the visualized lumbar spine. CT/Abdomen/Pelvis W IV Cont ONLY IMPRESSION: 5 mm cyst along the inferior medial aspect of the left kidney. Scattered atherosclerotic plaque formation. Fatty infiltration of the liver. Electronically Signed: Edwar Farmer MD at 9:09 EDT ,
== END | disposition home or self-care (01) ==
PROVIDERS: PCP Family Medicine; Referring Provider Urology; Visit Provider Urology
DX: D41.02 Neoplasm of uncertain behavior of left kidney (principal)
CPT/HCPCS: 74177; Q9967; A4216

== ENCOUNTER → 2023-02-27 | Outpatient (CLI) | payer BC, SELFPAY ==
[2023-02-27 12:51] LABS: Vitamin D,25 Hydroxy 33.4 ng/mL
[2023-02-27 13:05] LABS: Anion Gap 3 (5-15); BUN 16 mg/dL (7-18); BUN/Creat Ratio 16.2 RATIO (10-20); Calcium,Total 9.7 mg/dL (8.5-10.1); Chloride 105 mmol/L (98-107); Cholesterol 155 mg/dL (200); Creatinine, Serum 0.98 mg/dL (0.70-1.30); EST Glomerular Filtration Rate 86 mL/min (>60); Est Glom Filt Rate - Afr Amer 104 mL/min (>60); Glucose 80 mg/dL (74-106); High Density Lipoprotein 49 mg/dL; Potassium 3.6 mmol/L (3.5-5.1); Sodium Level 138 mmol/L (136-145); Triglycerides 123 mg/dL; Very Low Density Lipoprotein 25 mg/dL (5-40)
== END | disposition home or self-care (01) ==
LOC: MFPLAB 11:12
PROVIDERS: PCP Family Medicine; Visit Provider Family Medicine
DX: Z00.00 Encounter for general adult medical examination without abnormal findings (principal)
CPT/HCPCS: 36415; 80048; 80061; 82306

== ENCOUNTER 2023-03-25 07:54 | Day surgery (SDC) | payer BC, SELFPAY ==
[2023-03-25] VITALS (7 sets, daily range): BP systolic 104–169; BP diastolic 66–85; PULSE 77–99; RESP 16; TEMP 36.7–37.2; O2SAT 96–100; BMI 27.6
--- NOTE | 2023-03-25 07:57 | HP.PCM_ITS ---
HPI - General General Date of Admission: 03/25/23 HPI Narrative LESLEE BOYER, is a 48 M who presents for screening colonoscopy. Patient denies ever having a previous colonoscopy. Patient denies any family history of colon cancer?patient's mom had precancerous polyps in 2022. Patient's bowel movements daily denies any blood. Patient denies any chronic abdominal pain/vomiting/nausea/reflux. [facility] Medical History (Updated 03/23/23 @ 11:49 by Rajni Jamil) Asthma CPAP (continuous positive airway pressure) dependence Essential (primary) hypertension GERD (gastroesophageal reflux disease) High cholesterol History of kidney stones History of stress test Hyperlipidemia, unspecified IFG (impaired fasting glucose) Non-smoker DARRYL (obstructive sleep apnea) Renal lesion Sleep apnea Wears glasses Home Medications albuterol sulfate 90 mcg/actuation aerosol inhaler (ProAir HFA) 2 puff IH Q4H PRN PRN Wheezing 11/13/18 [History Last Taken Unknown] rosuvastatin 5 mg tablet 5 mg PO DAILY 11/13/18 [History Last Taken Unknown] calcium citrate 250 mg PO DAILY 03/05/23 [History Last Taken Unknown] lisinopril 10 mg tablet 20 mg PO DAILY 03/05/23 [History Last Taken 03/25/23 05:00] vitamin E (dl, acetate) 45 mg (100 unit) capsule 45 mg PO DAILY 03/05/23 [History Last Taken Unknown] Allergy/AdvReac Type Severity Reaction Status Date / Time Penicillins Allergy Anaphylaxis Verified 03/25/23 08:14 Family History (Updated 03/05/23 @ 16:18 by Armida Amos) Mother Adenomatous colon polyp Surgical History (Updated 03/23/23 @ 11:49 by Rajni Jamil) History of placement of ear tubes Hx of cystoscopy Hx of tonsillectomy Social History (Updated 03/05/23 @ 16:20 by Armida Amos) household members: spouse current occupational status: employed Smoking Status: Never smoker Past Medical/Surgical History Planned Operation Planned Operative Procedure/s: COLONOSCOPY-OA Previous Hospitalizations/Surgeries HX Hospitalizations: No Any Problems With Anesthesia: No You/Your Family Experience Fever (Hyperthermia) With Anes: No Cholinesterase deficiency: No Cardiovascular Hx Hypertension: Yes (CONTROOLED BUT RECENT BP HIGHER IN OFFICE) Respiratory Hx Asthma: Yes Hx Sleep Apnea: Yes CPAP: Yes BIPAP: No Hx Respiratory Tract Infection/Cold (presently): Yes (VIRAL INFECTION, COUGH AND RUNNY TOSIN-NO FEVER, TESTED (-)COVID) Result (for STOP score): Positive Smoking Status: Never smoker Neurological Does patient have nerve stimulator: No Blood Disorder Hx High Cholesterol: Yes Allergies Penicillins Allergy (Verified 03/25/23 08:14) Anaphylaxis Discharge Is Pt Admitted From a Alf, or a Residential: No After D/C, Where Do you Plan to Go: Return Home Physical Exam Const alert, oriented x3 and no apparent distress HEENT normocephalic and head/scalp atraumatic Resp normal respiratory effort Cardio regular rate GI soft to palpation and non-tender; Negative for non-distended Palpation: Negative for guarding Extremity no clubbing, cyanosis or edema Neuro CN's II-XII intact bilaterally Psych mental status grossly normal Assessment & Plan Assessment/Plan (1) Encounter for screening for malignant neoplasm of colon: Surgery Risks - Colonoscopy I discussed with the patient the risks of the procedure: Yes Risks Include but are not Limited To: Risks include but are not limited to: Bleeding, perforation requiring further surgery, inability to complete colonoscopy requiring barium enema.
[2023-03-25] MEDS: Lactated Ringers 1,000 ML 15 ML IV (08:20)
--- NOTE | 2023-03-25 09:00 | COLBX_PTH ---
PATIENT: LESLEE BOYER LOC: EN U#:[id number] AGE/SX: 48/M ROOM: RE03/25/[address]: Dr. Bernadine Aaron MD : 1975 BED: DIS: 03/25/2023 SPEC #: [id number] RECD: 03/25/23 10:39 STATUS: ABDON GAURANGJoe #: [id number] MAGGIE: 03/25/23 09:[address]: Bernadine Aaron DEPT: SURGICAL PATHOLOGY RECD BY: Butch Kincaid ENTERED: 03/25/23 11:42 SP TYPE: COLON BX OTHR DR: Dr. Ajith Schneider MD Tissues: A - Cecum, NOS B - Descending colon C - Sigmoid colon biopsy D - Sigmoid colon biopsy Procedures: Surgery Specimen Level IV HEADER OPERATION: Colonoscopy ? open access (MAC) and polypectomy and biopsies PRE-OP DIAGNOSIS: Screening TISSUE SUBMITTED: A ? Cecum polyp, B ? Proximal descending polyp x2, C ? Sigmoid polyp #1, D - Sigmoid polyp #2 MICROSCOPIC DIAGNOSIS A. Cecum polyp, biopsy: A fragment of colonic mucosa, no pathologic diagnosis. B. Proximal descending colon polyps x2, polypectomy: Fragments of tubular adenoma. Fragments of inflammatory polyp. C. Sigmoid polyp #1, polypectomy: Fragments of tubular adenoma. D. Sigmoid polyp #2, polypectomy: Fragments of tubular adenoma. SJ:loco 03/26/2023 MICROSCOPIC DESCRIPTION Slides are reviewed. GROSS DESCRIPTION A - Received in fixative is one container labeled with the patient's name and designated cecum polyp. The specimen consists of one irregular fragment of light hernandez soft tissue that measures 0.3 x 0.2 x <0.1 cm. The specimen is totally submitted in one cassette. B - Received in fixative is one container labeled with the patient's name and designated proximal descending polyp. The specimen consists of multiple irregular fragments of light hernandez soft tissue that in aggregate measure 1.0 x 0.3 x 0.1 cm. The specimen is totally submitted in one cassette. C - Received in fixative is one container labeled with the patient's name and designated sigmoid polyp #1. The specimen consists of two fragments of hernandez-pink polyp measuring in aggregate 0.7 x 0.5 x 0.4 cm. A few minute fragments of hernandez soft tissue are also noted. The entire specimen is submitted in one cassette. D - Received in fixative is one container labeled with the patient's name and designated sigmoid polyp #2. The specimen consists of two fragments of hernandez-pink polyp measuring in aggregate 1.0 x 0.5 x 0.3 cm and 0.3 and 0.8 cm in greatest dimension. A few minute fragments of hernandez soft tissue are also noted. The entire specimen is submitted in one cassette. / MILA:loco 03/25/2023 TC:1 CPT: 34998 x4
--- NOTE | 2023-03-25 09:31 | OP.COLON_ITS ---
Patient Name: Trevor Marshall Procedure Date: 03/25/2023 8:34 AM Date of : 1975 Age: 48 Procedure: Colonoscopy Indications: Screening for colorectal malignant neoplasm Providers: Bernadine Aaron MD Medicines: Monitored Anesthesia Care Patient Profile: Last Colonoscopy: none. The patient's first colonoscopy is today. Complications: No immediate complications. Procedure: Pre-Anesthesia Assessment: - Prior to the procedure, a History and Physical was performed, and patient medications and allergies were reviewed. The patient's tolerance of previous anesthesia was also reviewed. The risks and benefits of the procedure and the sedation options and risks were discussed with the patient. All questions were answered, and informed consent was obtained. Prior Anticoagulants: The patient has taken no previous anticoagulant or antiplatelet agents. ASA Grade Assessment: Per anesthesia. After reviewing the risks and benefits, the patient was deemed in satisfactory condition to undergo the procedure. After I obtained informed consent, the scope was passed under direct vision. Throughout the procedure, the patient's blood pressure, pulse, and oxygen saturations were monitored continuously. The colonoscope was introduced through the anus and advanced to the cecum, identified by the appendiceal orifice, ileocecal valve and palpation. The colonoscopy was performed without difficulty. The patient tolerated the procedure well. The quality of the bowel preparation was good. Scope In: 8:45:21 AM Scope Withdrawal Time 0 hours 21 minutes 54 seconds Scope Out: 9:14:46 AM Total Procedure Duration Time 0 hours 29 minutes 25 seconds Findings: The perianal and digital rectal examinations were normal. Four semi-pedunculated polyps were found in the sigmoid colon, proximal descending colon and cecum. The polyps were 3 to 6 mm in size. These were biopsied with a hot snare for histology. A less than 5 mm polyp was found in the proximal descending colon. The polyp was sessile. The polyp was removed with a cold biopsy forceps. Resection and retrieval were complete. The exam was otherwise without abnormality on direct and retroflexion views. Impression: - Four 3 to 6 mm polyps in the sigmoid colon, in the proximal descending colon and in the cecum. Biopsied. - One less than 5 mm polyp in the proximal descending colon, removed with a cold biopsy forceps. Resected and retrieved. - The examination was otherwise normal on direct and retroflexion views. Recommendation: - Discharge patient to home. - Resume previous diet. - Continue present medications. - Await pathology results. - Repeat colonoscopy in 3 - 5 years for surveillance based on pathology results. Procedure Code(s): --- Professional --- 61142, PT, Colonoscopy, flexible; with removal of tumor(s), polyp(s), or other lesion(s) by snare technique 78266, 59, Colonoscopy, flexible; with biopsy, single or multiple Diagnosis Code(s): --- Professional --- Z12.11, Encounter for screening for malignant neoplasm of colon D12.5, Benign neoplasm of sigmoid colon D12.4, Benign neoplasm of descending colon D12.0, Benign neoplasm of cecum CPT copyright 2017 [employer]. All rights reserved. The codes documented in this report are preliminary and upon adult probation officer review may be revised to meet current compliance requirements. MD Bernadine Mcdonald MD 03/25/2023 9:30:56 AM This report has been signed electronically. Number of Addenda: 0 Note Initiated On: 03/25/2023 8:34 AM
--- NOTE | 2023-03-25 09:32 | OP.CCLET_ITS ---
03/25/2023 Ajith Schneider MD [address] [place] [address] Re : Colonoscopy procedure for Trevor Marshall Dear Dr. Schneider This procedure was performed on Saturday, March 25, 2023. My impressions and recommendations are as follows: Impressions : - Four 3 to 6 mm polyps in the sigmoid colon, in the proximal descending colon and in the cecum. Biopsied. - One less than 5 mm polyp in the proximal descending colon, removed with a cold biopsy forceps. Resected and retrieved. - The examination was otherwise normal on direct and retroflexion views. Recommendations : - Discharge patient to home. - Resume previous diet. - Continue present medications. - Await pathology results. - Repeat colonoscopy in 3 - 5 years for surveillance based on pathology results. My findings are described in the full procedure note, which is enclosed. If I can be of further assistance, please feel free to contact me at Doctor phone number(s): , Work: . Sincerely, MD Bernadine Mcdonald MD 03/25/2023 9:30:56 AM This report has been signed electronically.
== END 2023-03-25 10:24 | disposition home or self-care (01) ==
LOC: EN 07:54 → AC 07:55
PROVIDERS: PCP Family Medicine; Referring Provider Surgery; Visit Provider Surgery
PROC: 0DJD8ZZ Inspection of Lower Intestinal Tract, Via Natural or Artificial Opening Endoscopic (ICD-10-PCS; CPT 45378; principal; 2023-03-25 08:55)
DX: Z12.11 Encounter for screening for malignant neoplasm of colon (principal); E78.00 Pure hypercholesterolemia, unspecified; I10 Essential (primary) hypertension; J45.909 Unspecified asthma, uncomplicated; Z79.899 Other long term (current) drug therapy; D12.5 Benign neoplasm of sigmoid colon; D12.4 Benign neoplasm of descending colon; D12.0 Benign neoplasm of cecum
CPT/HCPCS: 45385; 45380; 88305; J7120; J2405

== ENCOUNTER → 2023-03-26 | Outpatient (CLI) | payer BC, SELFPAY ==
--- NOTE | 2023-03-26 12:48 | MRI_ITS ---
STUDY: MRI ABDOMEN WITH AND WITHOUT CONTRAST REASON FOR EXAM: Male, 48 years old. hx of renal lesion--recheck size TECHNIQUE: Standardized fat and water weighted pulse sequences were obtained in all 3 orthogonal planes post contrast administration. IV 15 cc clariscan was administered for the contrast portion of the examination. COMPARISON: None. FINDINGS: Base of the chest is unremarkable in its visualized extent. Normal liver. Normal gallbladder and extrahepatic biliary system. Normal spleen. Normal pancreas. Normal bilateral adrenal glands. No hydronephrosis. No solid renal masses. There are 2 T2 bright cyst of the inferior kidney including a 5 mm lesion described on prior CT. The lesion currently measures 5.1 x 5.3 mm (not substantially change). The lesion is thin-walled, well-defined and no demonstrable nodule or septation. No appreciable enhancement, although limited assessment given small, subcentimeter size. Second, similar lesion is best seen on postcontrast images (image 91 series 11) measuring up to 2.8 mm. A similar third lesion in the left kidney as seen on image 68 of series 11 measuring 3 mm. 6.6 x 6.9 mm similar appearing lesion in the inferior right kidney is seen on image 86 of series 11. The lesion is similar since prior CT (faintly seen on coronal image 77 of series 601, obscured due to corticomedullary phase of imaging). Along the posterior left kidney on precontrast T1 fat saturation sequence (series 6) there is a bright 4.9 mm lesion (image 56), which does not demonstrate significant enhancement (Bosniak II, proteinaceous cyst). This lesion is seen in retrospect on prior CT on image 33 of series 2 and is stable. Visualized hollow viscus structures are unremarkable. Normal abdominal aorta. Normal inferior vena cava. Normal retroperitoneum. Normal abdominal wall. Normal osseous structures. MRI/MRI Abd WITH and W/O Contrast IMPRESSION: 1. Small (subcentimeter) simple, nonenhancing renal cysts (Bosniak I) although evaluation is limited due to small size. 2. Small (subcentimeter) posterior left renal proteinaceous cyst (Bosniak II). RECOMMENDATION: ACR White Paper guidelines (Herts, et al. JACR 2018; 15(2):264-273) suggest no follow-up is necessary. Electronically Signed: Korey Louise (Brooks), at 15:26 EDT ,
== END | disposition home or self-care (01) ==
PROVIDERS: PCP Family Medicine; Referring Provider Family Medicine; Visit Provider Family Medicine
DX: N28.9 Disorder of kidney and ureter, unspecified (principal)
CPT/HCPCS: 74183; A9575